=== PATIENT | male | born 1950 | race Caucasian/White ===

== ENCOUNTER 2020-04-03 07:57 | Outpatient (CLI) | payer MEDICARE, OTHER ==
[2020-04-03 14:21] LABS: Hemoglobin 17.9 g/dL (14.0-18.0); Mean Corpuscular HGB CONC 34.4 g/dL (32.0-36.0); Mean Corpuscular Hemoglobin 33.2 pg (27.0-31.0); Mean Corpuscular Volume 96.5 fL (78.0-98.0); Mean Platelet Volume 8.4 fL (7.4-10.4); Platelet Count 152 thou/uL (130-400); RBC Distribution Width 13.4 % (11.5-14.5); Red Blood Cell (RBC) Count 5.38 mill/uL (4.70-6.10); White Blood Cell (WBC) Count 6.6 thou/uL (4.8-10.8)
[2020-04-03 14:23] LABS: Bacteria/HPF None Seen HPF (None Seen); Bilirubin Negative (Negative); Blood, Urine Negative (Negative); Clarity Clear (Clear); Glucose, Urine (Dipstick) Normal (Negative); Ketone, Urine Negative (Negative); Leukocyte Negative Leu/uL (Negative); Nitrite Negative (Negative); Protein, Urine (Dipstick) Negative (Neg-Trace); Specific Gravity, Urine 1.012 (1.002-1.036); Squamous Epithelial None Seen HPF (0-3); Urobilinogen Normal mg/dL (Less than 2); WBC/HPF 0-3 HPF (0-3); pH, Urine 6.5 (5.0-9.0)
[2020-04-03 14:38] LABS: Anion Gap 10 mmol/L (10-20); BUN (Urea Nitrogen) 20 mg/dL (8.4-25.7); Calc. Creatinine Clearance 0 mL/min (70-130); Calcium 8.7 mg/dL (7.8-10.44); Carbon Dioxide 23 mmol/L (23-31); Chloride 110 mmol/L (98-107); Estimated GFR-MDRD 54; Glucose 104 mg/dL (83-110); Potassium 3.9 mmol/L (3.5-5.1); Sodium 139 mmol/L (136-145)
[2020-04-03 18:56] LABS: SARS-CoV-2 MS2 Positive; SARS-CoV-2 N Gene Negative; SARS-CoV-2 S Gene Negative; SARS-CoV-2 by NAA Not Detected (NotDetected); SARS-CoV-2 orf1ab Negative
--- NOTE | 2020-04-05 16:51 | EKG ---
Test Reason : PREOP Blood Pressure : / mmHG Vent. Rate : 067 BPM Atrial Rate : 055 BPM P-R Int : 184 ms QRS Dur : 126 ms QT Int : 394 ms P-R-T Axes : 066 -25 025 degrees QTc Int : 416 ms Sinus bradycardia with occasional Premature ventricular complexes Right bundle branch block Abnormal ECG No previous ECGs available Confirmed by DR. Veronica STYLES ([id number]) on 04/05/2020 4:51:11 PM Referred By: Keara FLEMING Confirmed By:DR. Veronica STYLES
== END 2020-04-03 07:58 | disposition home or self-care (01) ==
LOC: LABBT 07:57
PROVIDERS: ATTEND Urology
DX: Z01.818 Encounter for other preprocedural examination (principal); Z20.828 Contact with and (suspected) exposure to other viral communicable diseases; N35.912 Unspecified bulbous urethral stricture, male; E29.1 Testicular hypofunction; N40.1 Benign prostatic hyperplasia with lower urinary tract symptoms
CPT/HCPCS: 80048; 81001; 82670; 84403; 85027; 87086; 93005; U0003; 87635; 93010

== ENCOUNTER 2020-04-08 06:03 | Observation (INO) | payer MEDICARE ==
[2020-04-07 09:35] VITALS: BMI 30.9
[2020-04-08] MEDS ORDERED: Fentanyl 100 MCG/2 ML VIAL ONE (06:43)
[2020-04-08] MEDS ORDERED: Levofloxacin 500 mg/D5W 100 ml Premix Bag ONE (06:50)
[2020-04-08] MEDS ORDERED: Iothalamate Meglumine 60% 50 ML VIAL FS ONE (07:07)
[2020-04-08] MEDS ORDERED: Triamcinolone 40 MG/ML VIAL ONE (07:20)
[2020-04-08] MEDS ORDERED: SUGAMMADEX SODIUM 200 MG/2 ML VIAL ONE (08:15)
[2020-04-08] MEDS ORDERED: Promethazine HCl 25 MG/ML VIAL IM PRN (08:30)
[2020-04-08] MEDS ORDERED: Ondansetron HCl/PF 4 MG/2 ML Vial IVP PRN (08:30)
[2020-04-08] MEDS ORDERED: Promethazine HCl 25 MG/ML VIAL SLOW IVP PRN (08:30)
[2020-04-08] MEDS ORDERED: traMADol HCl 50 MG TAB PO PRN (08:43)
[2020-04-08] MEDS ORDERED: Zolpidem Tartrate 5 MG TAB PO PRN (08:43)
[2020-04-08] MEDS ORDERED: Hyoscyamine Sulfate SL 0.125 mg Tablet SL PRN (08:43)
[2020-04-08] MEDS ORDERED: diphenhydrAMINE 50 MG/ML VIAL IVP PRN (08:43)
[2020-04-08] MEDS ORDERED: hydrALAZINE 20 MG/ML VIAL SLOW IVP PRN (08:43)
[2020-04-08] MEDS ORDERED: EPHEDRINE 25 MG/5 ML SYRINGE ONE (08:51)
[2020-04-08] MEDS ORDERED: Ondansetron PF 4 MG/2 ML Vial ONE (08:51)
[2020-04-08] MEDS ORDERED: Dexamethasone 20 MG/5 ML VIAL ONE (08:51)
[2020-04-08] MEDS ORDERED: Lidocaine 1% PF 5 ML VIAL ONE (08:51)
[2020-04-08] MEDS ORDERED: Rocuronium Bromide 10 MG/ML (10ML VIAL) ONE (08:51)
[2020-04-08] MEDS ORDERED: Glycopyrrolate 0.2 MG/ML 5 ML SYRINGE ONE (08:51)
[2020-04-08] MEDS ORDERED: PROPOFOL 200 MG/20 ML VIAL ONE (08:51)
[2020-04-08] MEDS ORDERED: TOPIRAMATE 50 MG PO SCH (09:00)
--- NOTE | 2020-04-08 09:51 | OP ---
DATE OF PROCEDURE: 04/08/2020 PREOPERATIVE DIAGNOSIS: Bulbar urethral stricture. Regrowth of adenoma of prostate. POSTOPERATIVE DIAGNOSIS: Bulbar urethral stricture. Regrowth of adenoma of prostate. PROCEDURE PERFORMED: Retrograde urethrogram, direct vision internal urethrotomy, injection of Kenalog into the urethral stricture, transurethral resection of prostate. ANESTHESIA: General. COMPLICATIONS: None. ESTIMATED BLOOD LOSS: 10 mL. SPECIMEN: Prostate chips. DESCRIPTION OF PROCEDURE: After informed consent, the patient was taken to the operating room, transferred to the table on his own power. Anesthesia was established. A time-out was performed showing correct patient, site, and procedure. I performed a retrograde urethrogram by injecting about 40 mL of contrast through the urethra under fluoroscopy showing a stricture in the bulbar urethra. The patient was then prepped and draped in the lithotomy position. The DVIU scope was passed through the urethra noting a normal course and caliber of the urethra down to the bulbar urethra, where a stricture about 16-Z[place]ian was noted. The stricture was incised at the 12 o'clock position allowing easy passage of the scope into the prostatic urethra. A sidekick needle was then used to inject Kenalog into the incision site of the stricture. I then switched to the bipolar transurethral resection scope, which was easily passed through the urethra through the strictured area and into the prostate. Fairly significant regrowth was noted especially posteriorly. The bladder was entered and systematically examined noting no mucosal abnormalities. Both ureters were normal in appearance. The resection loop was used to resect the prostate from the bladder neck back to the verumontanum in the midline and then the left lobe was then resected from about 1 o'clock down to midline and the right lobe from 11 o'clock down to midline. Care was taken to avoid resection distal to the verumontanum. Meticulous hemostasis was achieved. The Ikro evacuator was used to retrieve all prostate chips, which were passed off the specimen. The bladder was then re-examined noting no further prostate chips or injuries to the ureters. The prostatic fossa was noted to have no active bleeding and then the scope was removed. A 20-Z[place]ian three-way catheter was placed with 30 mL instilled in the balloon. This was connected to his leg with a StatLock device, and CBI was initiated running clear on slow drip. The patient was then awoken from anesthesia, transferred back to his hospital bed and taken to PACU in stable condition, where he will be admitted overnight for CBI. Job ID: [id number] MTDNatalie
[2020-04-08] MEDS: Ketorolac Tromethamine 30 MG/ML VIAL IVP PRN ×2 (11:21→17:36)
[2020-04-08] MEDS: Acetaminophen 500 MG TAB PO PRN ×2 (13:39→20:16)
[2020-04-08] MEDS: Sodium Chloride 0.9% 1,000 ML IV SCH ×2 (17:46→20:15)
[2020-04-08] MEDS: Docusate 100 MG CAP PO SCH ×2 (17:48→20:15)
[2020-04-08] MEDS: Loratadine 10 MG TAB PO SCH (17:48)
[2020-04-08] MEDS: Aspirin 81 mg Enteric Coated Tablet PO SCH (17:48)
[2020-04-09] MEDS: Sodium Chloride 0.9% 1,000 ML IV SCH (04:30)
[2020-04-09] MEDS: Loratadine 10 MG TAB PO SCH (09:30)
[2020-04-09] MEDS: Aspirin 81 mg Enteric Coated Tablet PO SCH (09:30)
[2020-04-09] MEDS: Docusate 100 MG CAP PO SCH (09:30)
[2020-04-09 10:16] VITALS: BP 130/74; TEMP 97.6
--- NOTE | 2020-04-09 10:46 | RAD ---
EXAM: XR IVP Retrograde PROVIDED CLINICAL HISTORY: None provided. COMPARISON: None FINDINGS/IMPRESSION: A single fluoroscopic image from retrograde urethrogram is submitted for interpretation. There is con trast opacification of the urethra with contrast seen in the urinary bladder. There is a focal area of narrowing/stricture seen in the region of the bulbous urethra. Correlation with intraoperative fin dings is recommended.
--- NOTE | 2020-04-10 13:17 | DIS ---
DATE OF ADMISSION: 04/08/2020 DATE OF DISCHARGE: 04/09/2020 DISCHARGE DIAGNOSES: Lower urinary tract symptoms due to enlarged prostate, urethral stricture. PROCEDURE PERFORMED: DVIU, Kenalog injection, bipolar transurethral resection of prostate. HOSPITAL COURSE: The patient underwent internal urethrotomy for a bulbar stricture with injection of Kenalog, and then bipolar transurethral resection of prostate for regrowth adenoma. There were no surgical complications. He was admitted overnight with urine remaining clear on slow drip CBI. The following morning, this was turned off with his urine remaining clear. He was having no discomfort, tolerating diet, and ready for discharge home the morning of April 09. DISCHARGE MEDICATIONS: 1. Bactrim. 2. Tramadol. 3. Oxybutynin. DISCHARGE PLAN: Follow up next Tuesday for void trial in my office. Job ID: [id number]
== END 2020-04-09 10:19 | disposition home or self-care (01) ==
LOC: SDC 06:03 → SURG B 10:46
PROVIDERS: ADMIT Urology; ATTEND Urology
PROC: 0VB08ZZ Excision of Prostate, Via Natural or Artificial Opening Endoscopic (ICD-10-PCS; principal; 2020-04-08)
DX: N40.1 Benign prostatic hyperplasia with lower urinary tract symptoms (principal); R39.12 Poor urinary stream; R39.15 Urgency of urination; R39.16 Straining to void; R35.0 Frequency of micturition; N35.112 Postinfective bulbous urethral stricture, not elsewhere classified, male; E29.1 Testicular hypofunction; M19.90 Unspecified osteoarthritis, unspecified site; G43.909 Migraine, unspecified, not intractable, without status migrainosus; Z79.82 Long term (current) use of aspirin; Z79.899 Other long term (current) drug therapy; Z87.891 Personal history of nicotine dependence; Z88.5 Allergy status to narcotic agent; Z95.5 Presence of coronary angioplasty implant and graft
CPT/HCPCS: 74420; 88305; 96361; 96374; 96376; G0378; J1100; J1885; J1956; J2405; J2704; J3010; J3301

== ENCOUNTER 2020-05-07 15:48 | Outpatient (CLI) | payer MEDICARE ==
[~2020-05-07 15:48] MED LIST: Iopamidol 370 76% 100 ML VIAL ONE
--- NOTE | 2020-05-07 16:39 | CT ---
CT NECK WITH IV CONTRAST: 05/07/20 INDICATIONS: Palpable nodule right neck. A skin marker was placed at site of concern which is in the right neck, j ust inferior to the right ear. FINDINGS: Parotid glands appear unremarkable and symmetric. The skin marker on the right overlies the right par otid gland. There is no evidence of parotid mass or lymph node at the site. Submandibular glands are symmetric and unremarkable. Thyroid unremarkable. Nasopharynx unremarkable. The oropharynx and base of tongue obscured by spray artifact from dental appliance. Waldeyer's ring a ppears symmetric. There are scattered calcifications seen in the region of the palatine tonsils bilat erally suggesting tonsilliths. Both palatine tonsils are mildly prominent for age. Review of the hypopharynx shows effacement of a left piriform sinus. There is mucosal prominence at t his location and this area should be directly evaluated by ENT to rule out a mucosal lesion. The larynx appears unremarkable. The parapharyngeal space and retropharyngeal space unremarkable. [employer] space unremarkable. Carot id space unremarkable. No significant atherosclerotic disease seen in either extracranial internal ca rotid artery. Review of lymph node levels shows no significant level I submandibular nodes. Nonspecific level II jugulodigastric nodes are seen bilaterally. IIA lymph nodes are seen bilaterally and are unremarkable. Small bilateral IIB lymph nodes are seen posterior to the vascular bundle. No evidence of significant level III or level IV lymph nodes. No significant level V lymph nodes. There are degenerative changes in the cervical spine with loss of disc space and spondylosis at multi ple levels. Posterior spurring and spondylosis with disc bulge produce cord compression at C3-4, C4-5 , C5-6 and C6-7. Severe cord compression at C5-6. There is foraminal stenosis at all these levels due to facet and uncinate hypertrophy. The paranasal sinuses are well aerated and clear. Lung apices are clear as visualized. The upper mediastinum is unremarkable. IMPRESSION: 1. Effacement of the left piriform sinus with mucosal prominence at this level. Recommend direct evaluation by ENT to rule out mucosal lesion at this site. 2. Skin marker overlying the right parotid gland. There is no evidence of parotid gland mass or adenopathy. 3. Mildly prominent palatine tonsils for age with evidence of tonsilliths bilaterally. 4. Severe degenerative disc changes in the cervical spine with posterior spurring and spondylos is producing cervical cord compression at multiple levels. The findings are severe at C5-6. Recommend clinical correlation regarding neurological deficits and suggest neurosurgical consultation. POS: VINEET
== END 2020-05-07 15:49 | disposition home or self-care (01) ==
LOC: BICCT 15:48
PROVIDERS: ATTEND Otolaryngology
DX: R22.0 Localized swelling, mass and lump, head (principal); M50.30 Other cervical disc degeneration, unspecified cervical region; G95.20 Unspecified cord compression; M47.812 Spondylosis without myelopathy or radiculopathy, cervical region
CPT/HCPCS: 70491; 82565; Q9967

== ENCOUNTER 2021-07-10 07:59 | Outpatient (CLI) | payer MEDICARE ==
[2021-07-10 09:44] LABS: Hemoglobin 16.6 g/dL (13.5-17.5); Mean Corpuscular HGB CONC 33.5 g/dL (32.0-36.0); Mean Corpuscular Volume 98.6 fl (81.2-95.1); Mean Platelet Volume 10.3 fl (7.4-10.4); Platelet Count 135 10x3/uL (150-450); RBC Distribution Width 14.1 % (11.5-14.5); Red Blood Cell (RBC) Count 5.03 10x6/uL (4.32-5.72)
[2021-07-10 10:07] LABS: Anion Gap 12 mmol/L (10-20); BUN (Urea Nitrogen) 38 mg/dL (8.4-25.7); Calc. Creatinine Clearance 0 mL/min (70-130); Calcium 9.1 mg/dL (7.8-10.44); Carbon Dioxide 25 mmol/L (23-31); Chloride 109 mmol/L (98-107); Glucose 81 mg/dL (83-110); Sodium 142 mmol/L (136-145)
[2021-07-10 19:34] LABS: SARS-CoV-2 PCR by NAA Not Detected (NotDetected)
== END 2021-07-10 08:00 | disposition home or self-care (01) ==
LOC: LABBT 07:59
PROVIDERS: ATTEND Neurological Surgery
DX: Z01.818 Encounter for other preprocedural examination (principal); Z20.822 Contact with and (suspected) exposure to COVID-19
CPT/HCPCS: 80048; 85027; 93005; U0003; U0005; 93010

== ENCOUNTER 2021-07-15 05:37 | Day surgery (SDC) | payer MEDICARE ==
[2021-07-13 10:36] VITALS: BMI 28.3
[2021-07-15] MEDS ORDERED: Thrombin 5000 UNITS/5 ML VIAL ONE (06:11)
[2021-07-15] MEDS ORDERED: Scopolamine 1.5 mg/72 hour Patch ONE (06:32)
[2021-07-15] MEDS ORDERED: Famotidine/PF 20 mg/2ml Vial ONE (06:42)
[2021-07-15] MEDS ORDERED: Fentanyl 100 MCG/2 ML VIAL ONE (06:42)
[2021-07-15] MEDS ORDERED: ceFAZolin 2 GM/Dextrose 50 ML IVPB ONE ×2 (06:47→11:13)
[2021-07-15] MEDS ORDERED: Lidocaine 1% PF 5 ML VIAL ONE (07:11)
[2021-07-15] MEDS ORDERED: PROPOFOL 200 MG/20 ML VIAL ONE (07:11)
[2021-07-15] MEDS ORDERED: Dexamethasone 20 MG/5 ML VIAL ONE (07:11)
[2021-07-15] MEDS ORDERED: Rocuronium Bromide 10 MG/ML (10ML VIAL) ONE (07:11)
[2021-07-15] MEDS ORDERED: SUGAMMADEX SODIUM 200 MG/2 ML VIAL ONE (08:53)
[2021-07-15] MEDS ORDERED: Tamsulosin HCl 0.4 MG CAP ONE (09:33)
[2021-07-15] MEDS ORDERED: Promethazine HCl 25 MG/ML VIAL ONE (10:04)
[2021-07-15] MEDS ORDERED: Acetaminophen/Codeine 30-300mg Tablet ONE (11:22)
== END 2021-07-15 12:35 | disposition home or self-care (01) ==
LOC: SDC 05:37
PROVIDERS: ATTEND Neurological Surgery
PROC: 0RG20A0 Fusion of 2 or more Cervical Vertebral Joints with Interbody Fusion Device, Anterior Approach, Anterior Column, Open Approach (ICD-10-PCS; principal; 2021-07-15)
DX: M54.12 Radiculopathy, cervical region (principal); M48.02 Spinal stenosis, cervical region; G89.29 Other chronic pain; G43.909 Migraine, unspecified, not intractable, without status migrainosus; I51.9 Heart disease, unspecified; K21.9 Gastro-esophageal reflux disease without esophagitis; M19.90 Unspecified osteoarthritis, unspecified site; Z79.811 Long term (current) use of aromatase inhibitors; Z79.82 Long term (current) use of aspirin; Z79.899 Other long term (current) drug therapy; Z88.5 Allergy status to narcotic agent
CPT/HCPCS: 76000; C1713; C1776; J0690; J1100; J2550; J2704; J3010; S0028

== ENCOUNTER 2022-10-25 13:58 | Outpatient (CLI) | payer MEDICARE | END 2022-10-25 13:59 | disposition home or self-care (01) | LOC: SCSMRI 13:58 | PROVIDERS: ATTEND Anesthesiology Pain Medicine | DX: M47.26 Other spondylosis with radiculopathy, lumbar region (principal); M51.16 Intervertebral disc disorders with radiculopathy, lumbar region | CPT/HCPCS: 72148 ==

== ENCOUNTER 2022-12-22 07:23 | Outpatient (CLI) | payer MEDICARE | END 2022-12-22 07:24 | disposition home or self-care (01) | LOC: NM 07:23 | PROVIDERS: ATTEND Internal Medicine Gastroenterology | DX: K31.84 Gastroparesis (principal); K31.1 Adult hypertrophic pyloric stenosis | CPT/HCPCS: 78264; A9541 ==